=== PATIENT | female | born 1980 | race Caucasian/White ===

== ENCOUNTER 2021-03-13 16:44 | Emergency (ER) | payer OTHER ==
[2021-03-13 18:32] LABS: BASOPHIL 0.8 % (0-2); EOSINOPHIL 1.5 % (0-5); HGB 14.3 g/dl (12.5-16.0); LYMPHOCYTE 20.6 % (15-48); MCH 30.5 pg (25.0-31.0); MCHC 32.5 g/dL (32.0-36.0); MCV 93.8 fL (78.0-100.0); MONOCYTE 6.6 % (0-12); MPV 11.1 fL (6.0-9.5); NEUTROPHIL 70.4 % (41-80); NRBC 0; PLT 229 K/uL (150-400); RBC 4.69 M/uL (4.20-5.40); RDW 13.2 % (11.5-14.0); WBC 7.3 K/uL (4.0-10.5)
[2021-03-13 19:00] LABS: ALBUMIN 3.4 g/dL (3.4-5.0); BILIRUBIN - TOTAL 0.3 mg/dL (0.2-1.0); BUN/CREAT RATIO (CALC) 11.4 RATIO; CREATININE 0.79 mg/dL (0.51-0.95); GLOBULIN (CALCULATION) 4.1 g/dL; TOTAL PROTEIN 7.5 g/dL (6.4-8.2)
[2021-03-13] MEDS ORDERED: REGLAN10 MG PO (20:57)
[2021-03-13] MEDS ORDERED: RIZATRIPTAN10 M1 PO (20:57)
== END 2021-03-13 21:04 | disposition home or self-care (01) ==
LOC: FER 16:44
PROVIDERS: Internal Medicine
DX: G43.909 Migraine, unspecified, not intractable, without status migrainosus (principal); Z88.0 Allergy status to penicillin; Z88.2 Allergy status to sulfonamides; Z88.6 Allergy status to analgesic agent
CPT/HCPCS: 36415; 80053; 85025; 96372; J2765; J3030; J3475; J7030